=== PATIENT | male | born 1945 | race African-American/Black ===

== ENCOUNTER 2021-06-12 09:02 | Day surgery (SDC) | payer MEDICARE, BC ==
[~2021-06-12] VITALS: Ht 170.2 cm; Wt 89.7 kg
[~2021-06-12 09:02] MED LIST: LOSARTAN POTAS100 M1 PO; TAMS.4ER PO; TIMO.25OPS BOTHEYES
--- NOTE | 2021-06-12 10:39 | NUR ---
Ambulatory in Day Surgery History, Chart, Medications and Allergies reviewed before start of procedure. Lungs clear T/O to Auscultation. Patient confirms NPO status and agrees with scheduled surgery. Pre-Op teaching done. Pt verbalizes understanding. Patient States Post-Procedure ride home has been arranged.
--- NOTE | 2021-06-12 11:39 | NUR ---
06/12/21 1139 MADI MORALES History, Chart, Medications and Allergies reviewed before start of procedure. Patient confirms NPO status and agrees with scheduled surgery. 3-LEAD EKG REVIEWED WITH PHYSICIAN PRIOR TO START OF PROCEDURE. MONITOR INTACT WITH CONTINUOUS PULSE OXIMETRY AND INTERMITTENT BP. PATIENT DETERMINED TO BE ASA APPROPRIATE FOR PROPOFOL SEDATION PRIOR TO START OF PROCEDURE BY DR. VILLAGRAN. 02 VIA POM.
--- NOTE | 2021-06-12 12:30 | NUR ---
Patient up to Ambulate independently. Gait steady. Discharge instructions reviewed with patient. Patient verbalizes understanding. Copy given to patient to take home. Discharged via wheelchair to private car for ride home WITH SIGNIFICANT OTHER
== END 2021-06-12 12:33 | disposition home or self-care (01) ==
LOC: ORSCMMR 09:02 → ORD 10:00 → ORSCMMR 10:00
PROVIDERS: Internal Medicine Gastroenterology
PROC: 0DBM8ZX Excision of Descending Colon, Via Natural or Artificial Opening Endoscopic, Diagnostic (ICD-10-PCS; principal; 2021-06-12 10:00)
PROC: 0DBL8ZX Excision of Transverse Colon, Via Natural or Artificial Opening Endoscopic, Diagnostic (ICD-10-PCS; principal; 2021-06-12 10:00)
DX: Z12.11 Encounter for screening for malignant neoplasm of colon (principal); Z86.010 Personal history of colon polyps; D12.3 Benign neoplasm of transverse colon; D17.79 Benign lipomatous neoplasm of other sites; I10 Essential (primary) hypertension; K64.8 Other hemorrhoids; Z79.899 Other long term (current) drug therapy
CPT/HCPCS: 87426; 88305; C9803; J2704; J7120